=== PATIENT | male | born 1985 | race Caucasian/White ===

== ENCOUNTER 2019-04-30 18:02 | Inpatient (IN) | payer OTHER ==
[~2019-04-30] VITALS: Ht 162.6 cm; Wt 81.6 kg
[2019-05-03] MEDS ORDERED: ASA-EC81 MG PO (12:46)
== END 2019-05-03 13:30 | DRG 282 ==
LOC: ER 18:02 → MEDJ 05-01 12:01 → ICU-2 05-01 12:01 → MEDJ 05-02 18:08
PROVIDERS: ADMIT Internal Medicine
PROC: B54DZZZ Ultrasonography of Bilateral Lower Extremity Veins (ICD-10-PCS; principal; 2019-05-01)
PROC: B44HZZZ Ultrasonography of Bilateral Lower Extremity Arteries (ICD-10-PCS; 2019-05-01)
PROC: B345ZZZ Ultrasonography of Bilateral Common Carotid Arteries (ICD-10-PCS; 2019-05-01)
PROC: B348ZZZ Ultrasonography of Bilateral Internal Carotid Arteries (ICD-10-PCS; 2019-05-01)
PROC: B246ZZZ Ultrasonography of Right and Left Heart (ICD-10-PCS; 2019-05-01)
PROC: 4A12X4Z Monitoring of Cardiac Electrical Activity, External Approach (ICD-10-PCS; 2019-05-02)
DX: I21.4 Non-ST elevation (NSTEMI) myocardial infarction (principal); E11.65 Type 2 diabetes mellitus with hyperglycemia; Z87.891 Personal history of nicotine dependence; F10.21 Alcohol dependence, in remission; F12.21 Cannabis dependence, in remission

== ENCOUNTER → 2025-03-21 | Emergency (ER) | payer OTHER ==
[~2025-03-21] VITALS: Ht 165.1 cm; Wt 95.3 kg
[~2025-03-21] MED LIST: ASA-EC81 MG PO
== END | disposition left against medical advice (07) ==
LOC: ER 02:17
DX: Z53.21 Procedure and treatment not carried out due to patient leaving prior to being seen by health care provider (principal)